=== PATIENT | female | born 1950 | race Caucasian/White ===

== ENCOUNTER 2021-02-02 09:30 | Observation (INO) | payer MEDICAID ==
[~2021-02-02] VITALS: Ht 165.1 cm; Wt 113.4 kg
[~2021-02-02 09:30] MED LIST: AVAPRO150 MG PO; ELIQUIS5 MG PO; FLECAINIDE ACE150 MG PO; HYDROCHLOROTH12.5 MG PO; K-DUR TAB 10 M10 MEQ PO; LANOXIN TAB0.125 MG PO; LIPITOR TAB 1010 MG PO; METOPROLOL SUCC25 MG PO; MUCINEX600 MG PO; TRAMADOL HCL50 MG PO
[2021-02-02 10:40] LABS: HEMOGLOBIN 12.2 gm/dl (12.3-15.3); RED BLOOD COUNT 4.54 M/UL (4.00-5.10); WHITE BLOOD COUNT 8.2 K/UL (4.5-11.0)
[2021-02-02 11:19] LABS: BUN/CREATININE RATIO 23 (0-10)
[2021-02-03] MEDS ORDERED: LOPRESSOR 25 MG25 MG PO (16:36)
== END 2021-02-03 18:34 | disposition home or self-care (01) ==
LOC: ER1 09:30 → CDU 11:40 → PROG CARE 11:40
PROVIDERS: Emergency Medicine; ADMIT Internal Medicine Infectious Disease
DX: I48.0 Paroxysmal atrial fibrillation (principal); I10 Essential (primary) hypertension; I05.0 Rheumatic mitral stenosis; Z79.899 Other long term (current) drug therapy; Z20.822 Contact with and (suspected) exposure to COVID-19
CPT/HCPCS: ECHO; 0240U; 71045; 80053; 82550; 82553; 83874; 84439; 84443; 84484; 85025; 93005; 93306; 96374; 96375; 99285; G0378; J1200; J2250; J3010

== ENCOUNTER → 2022-05-28 | Outpatient (CLI) | payer MEDICARE, OTHER ==
[~2022-05-28] MED LIST changes: +LOPRESSOR 25 MG25 MG PO
== END ==
LOC: HEART 5 13:58
DX: R00.1 Bradycardia, unspecified (principal); R55 Syncope and collapse

== ENCOUNTER → 2022-08-16 | Outpatient (CLI) | payer MEDICARE, OTHER | LOC: US 09:30 → CATH 10:00 | DX: R55 Syncope and collapse (principal) | CPT/HCPCS: 93880 ==